=== PATIENT | male | born 1970 | race Caucasian/White ===

== ENCOUNTER 2021-12-01 11:00 | Emergency (ER) | payer MEDICAID, SELFPAY ==
[2021-12-01 11:28] VITALS: BP 91/66; PULSE 106; RESP 16; TEMP 36.4; O2SAT 98; BMI 18.8
--- NOTE | 2021-12-01 12:00 | CRLHL7_ITS ---
For Patients: As a result of the Century Cures Act, medical imaging exams and procedure reports are released immediately into your electronic medical record. You may view this report before your referring provider. If you have questions, please contact your health care provider. Indication: ABD PAIN, WIEGHT LOSS Technique: Noncontrast CT abdomen and pelvis Please note that all CT scans at this facility use dose modulation, iterative reconstruction, and/or weight-based dosing when appropriate to reduce radiation dose to as low as reasonably achievable. Comparison: None Findings: Lung bases are clear. No free intraperitoneal air. Lung volume is in the lung bases are hyperinflated. Noncontrast enhanced liver normal. Gallbladder is incompletely distended. No calcified gallstones or biliary obstruction. Normal noncontrast enhanced pancreas and spleen. Adrenal glands are unremarkable. No renal stone or hydronephrosis. Mild vascular calcifications are present. The bladder is distended. No bladder stones. Normal ureters. Prostate calcifications are present. Stool is present throughout the colon. Appendix is normal. No free fluid or abscess. Fecalization of small bowel loops noted. Chronic bilateral pars defects at L5 without spondylolisthesis. No mechanical bowel obstruction. No adenopathy. Impression: Stool is present throughout the colon with fecalization of numerous small bowel loops suggesting constipation/small bowel motility disorder. Please note that all CT scans at this facility use dose modulation, iterative reconstruction, and/or weight-based dosing when appropriate to reduce radiation dose to as low as reasonably achievable. Dictated by Yehuda Kerr MD @ 12/01/2021 12:48:18 PM (Electronically Signed)
--- NOTE | 2021-12-01 12:01 | CRLHL7_ITS ---
For Patients: As a result of the Century Cures Act, medical imaging exams and procedure reports are released immediately into your electronic medical record. You may view this report before your referring provider. If you have questions, please contact your health care provider. INDICATION: Shortness of breath. TECHNIQUE: Chest 2 views. COMPARISON: None. FINDINGS: Cardiovascular and mediastinum: Heart size and vasculature are normal in caliber and appearance. Lungs and pleural spaces: Lungs are hyperinflated but otherwise clear. No sign of infiltrate or mass. No sign of pleural effusion. No pneumothorax. Bones and soft tissues: No significant findings. IMPRESSION: Lung hyperinflation suggesting obstructive disease such as asthma or COPD. Exam otherwise unremarkable. Dictated by Shahid Boykin MD @ 12/01/2021 12:43:39 PM (Electronically Signed)
--- NOTE | 2021-12-01 12:32 | ED.GENADULT ---
HPI - General Adult General Chief complaint: Abdominal Pain Stated complaint: Abdominal pain Time Seen by Provider: 12/01/21 11:49 History of Present Illness HPI narrative: 51-year-old male, looks older than stated age, coming in today complaining of abdominal pain that has been present for 2 months. Pain is located across the epigastric region and sometimes radiates diffusely. He states that eating makes it worse. Zantac makes it better. He is concerned because despite having a normal appetite he has lost about 40 lb in the last 10 months. He states that he has been eating smaller amounts of food more frequently throughout the day but feels he has been eating the same amount the end of the day. He denies any diarrhea. No dysuria, increased urgency or frequency although he states that he usually has urgency and frequency because he does have diabetes. Patient read about a year ago that metformin causes cancer so he stopped taking his metformin. He is currently taking no medications. He does smoke a pack cigarettes per day, smokes marijuana daily. Denies other drug or alcohol use. He does live with his mother, who encouraged him to be seen today. He denies any vomiting, no significant nausea. No blood in his stools. Related Data Home Medications Medication Instructions Recorded Confirmed famotidine 10 mg tablet 10 mg PO DAILY 12/01/21 12/01/21 (Zantac-360 (famotidine)) Previous Rx's Medication Instructions Recorded sucralfate 1 gram tablet (Carafate) 1 g PO BID #60 tabs 12/01/21 sucralfate 1 gram tablet (Carafate) 1 g PO TID PRN #30 tabs 12/01/21 Allergies Allergy/AdvReac Type Severity Reaction Status Date / Time aspirin Allergy Mild Verified 12/01/21 11:36 Review of Systems Status of ROS: Reports: 10 or more systems reviewed and unremarkable except as noted in History and below [facility] Social History Smoking Status: Never smoker Do you use any of these nicotine containing products: None Second hand tobacco smoke exposure: No How often do you have a drink containing alcohol: never How often do you have six or more drinks on one occasion: Never AUDIT-C Alcohol total score: 0 Non-prescribed substance use: denies use service: No Exam Narrative: Exam Narrative: Very thin, well-developed patient in no acute distress. Alert and oriented. Answers questions appropriately. Mood and affect are appropriate. Thoughts are goal oriented and rational. No tangential or magical thinking noted. Patient speaks in full sentences without needing to catch his breath. Speech is not slurred or pressured. HEENT: Normocephalic atraumatic. Pupils are equally round reactive to light. Extraocular muscles are intact. Conjunctivae are moist without any icterus noted. Moist mucous membranes. Multiple missing teeth. Posterior pharynx is normal. Neck is soft without any lymphadenopathy or thyromegaly. No masses are appreciated. Cardiovascular: Heart is regular rate and rhythm S1 and S2 are present without any murmurs. Lungs: Decreased breath sounds bilaterally, no wheezes rhonchi or rales are appreciated. Patient takes deep breaths without any discomfort. Abdomen: Soft and nondistended with normal bowel sounds. No guarding or rebound. No masses or organomegaly appreciated. He has mild tenderness in the epigastric region. He has some redundant skin on the abdominal wall. Extremities: Bilateral lower extremities are without edema. Normal DP and PT pulses. Skin: Well perfused without any obvious rashes. Const: Vital Signs, click to edit/add: Vital Signs - 24 hr 12/01/21 11:28 Temperature 97.6 F Pulse Rate [Right Pulse Oximeter] 106 H Respiratory Rate 16 Blood Pressure [Le ft Upper Arm] 91/66 Pulse Oximetry 98 Oxygen Delivery Me thod Room Air Course Course Hospital Course: Labs were unremarkable. Chest x-ray consistent with COPD. Abdominal CT unremarkable. Vital Signs Vital signs: Initial Vital Signs Temperature 97.6 F 12/01/21 11:28 Temperature Source Temporal Artery Scan 12/01/21 11:28 Pulse Rate 106 H 12/01/21 11:28 Pulse Rhythm 12/01/21 11:28 Respiratory Rate 16 12/01/21 11:28 Blood Pressure 91/66 12/01/21 11:28 Blood Pressure Mean 74 12/01/21 11:28 Blood Pressure Position Sitting 12/01/21 11:28 Pulse Oximetry 98 12/01/21 11:28 Oxygen Delivery Method 12/01/21 11:28 Vital Signs Temperature 97.6 F 12/01/21 11:28 Pulse Rate 106 H 12/01/21 11:28 Respiratory Rate 16 12/01/21 11:28 Blood Pressure 91/66 12/01/21 11:28 Pulse Oximetry 98 12/01/21 11:28 Oxygen Delivery Method 12/01/21 11:28 Temperature 97.6 F 12/01/21 11:28 Pulse Rate 106 H 12/01/21 11:28 Respiratory Rate 16 12/01/21 11:28 Blood Pressure 91/66 12/01/21 11:28 Pulse Oximetry 98 12/01/21 11:28 Oxygen Delivery Method 12/01/21 11:28 Medical Decision Making MDM Narrative Medical decision making narrative: 51-year-old male with abdominal discomfort consistent with gastritis or peptic ulcer disease. We discussed treatment for this including omeprazole, Carafate. I do recommend he follow up his primary care provider to see how he is doing. Also recommend he start back on his metformin. We discussed his elevated blood sugars today. I do not see any evidence of DKA. Medical Records Medical records reviewed: Yes I reviewed the patient's medical records Lab Data Lab results reviewed: Yes I reviewed the patient's lab results Labs: Lab Results 12/01/21 12/01/21 12/01/21 Range/Units 12:40 12:45 12:45 WBC 8.03 (4.50-11.00) K/uL RBC 4.76 (4.30-5.90) m/uL Hgb 14.7 (13.5-17.5) gm/dL Hct 42.2 (37.0-53.0) % MCV 89 (80-100) fL MCH 31 (26-34) pg MCHC 35 (32-36) gm/dL RDW Coeff of Gilles 11.3 L (11.5-15.5) % Plt Count 270 (140-440) K/uL Neut % (Auto) 61.0 (42.0-72.0) % Lymph % (Auto) 27.4 (20-44) % [place] % (Auto) 9.3 (0.0-11.0) % Eos % (Auto) 1.6 (0.0-7.0) % Baso % (Auto) 0.5 (0.0-3.0) % Neut # (Auto) 4.89 (1.7-7.0) K/uL Lymph # (Auto) 2.20 (0.90-2.90) K/uL [place] # (Auto) 0.70 (0.00-0.90) K/UL Eos # (Auto) 0.13 (0.00-0.50) K/uL Baso # (Auto) 0.04 (0.00-0.30) K/uL Abs Immat Gran (auto) 0.02 (0.00-0.30) K/uL ESR 2 (2-15) mm/hr VBG pH (7.32-7.43) VBG pCO2 (40-50) mmHG VBG pO2 (25-47) mmHG VBG HCO3 (21-28) mmol/L Sodium (135-149) mmol/L Potassium (3.6-5.1) mmol/L Chloride (96-114) mmol/L Carbon Dioxide (20-32) mmol/L BUN (5-24) mg/dL Creatinine (0.5-1.5) mg/dL Estimated Creat Clear Estimated GFR ml/min Glucose (60-115) mg/dL Lactate (0.5-1.9) mmol/L Calcium (8.4-10.6) mg/dL Total Bilirubin (0.1-1.5) mg/dL Direct Bilirubin (0.0-0.5) mg/dL AST (12-35) U/L ALT (4-50) U/L Alkaline Phosphatase (40-150) U/L C-Reactive Protein (0.5-1.0) mg/dL Total Protein (6.0-8.3) g/dL Albumin (3.3-5.0) g/dL Lipase (23-300) U/L TSH 0.963 (0.270-4.20) uIU/mL Urine Color (Yellow) Urine Appearance (Clear) Urine pH (5.0-8.5) Ur Specific [place] (1.000-1.030) Urine Protein (Negative) Urine Glucose (UA) (Negative) Urine Ketones (Negative) Urine Blood (Negative) Urine Nitrite (Negative) Urine Bilirubin (Negative) Urine Urobilinogen (0.2-1.0) Ur Leukocyte Esterase (Negative) Urine RBC (0-2) Urine WBC (0-5) Ur Squamous Epith Cells (None-Few) Urine Bacteria (None) 12/01/21 12/01/21 12/01/21 Range/Units 12:45 12:45 12:45 WBC (4.50-11.00) K/uL RBC (4.30-5.90) m/uL Hgb (13.5-17.5) gm/dL Hct (37.0-53.0) % MCV (80-100) fL MCH (26-34) pg MCHC (32-36) gm/dL RDW Coeff of Gilles (11.5-15.5) % Plt Count (140-440) K/uL Neut % (Auto) (42.0-72.0) % Lymph % (Auto) (20-44) % [place] % (Auto) (0.0-11.0) % Eos % (Auto) (0.0-7.0) % Baso % (Auto) (0.0-3.0) % Neut # (Auto) (1.7-7.0) K/uL Lymph # (Auto) (0.90-2.90) K/uL [place] # (Auto) (0.00-0.90) K/UL Eos # (Auto) (0.00-0.50) K/uL Baso # (Auto) (0.00-0.30) K/uL Abs Immat Gran (auto) (0.00-0.30) K/uL ESR (2-15) mm/hr VBG pH 7.403 (7.32-7.43) VBG pCO2 44 (40-50) mmHG VBG pO2 31.6 (25-47) mmHG VBG HCO3 27 (21-28) mmol/L Sodium 133 L (135-149) mmol/L Potassium 4.1 (3.6-5.1) mmol/L Chloride 100 (96-114) mmol/L Carbon Dioxide 26 (20-32) mmol/L BUN 12 (5-24) mg/dL Creatinine 0.4 L (0.5-1.5) mg/dL Estimated Creat Clear 171.99 Estimated GFR 134 ml/min Glucose 371 H* (60-115) mg/dL Lactate 1.2 (0.5-1.9) mmol/L Calcium 8.9 (8.4-10.6) mg/dL Total Bilirubin 0.6 (0.1-1.5) mg/dL Direct Bilirubin 0.1 (0.0-0.5) mg/dL AST 22 (12-35) U/L ALT 24 (4-50) U/L Alkaline Phosphatase 104 (40-150) U/L C-Reactive Protein < 0.5 L (0.5-1.0) mg/dL Total Protein 6.4 (6.0-8.3) g/dL Albumin 3.8 (3.3-5.0) g/dL Lipase 59 (23-300) U/L TSH (0.270-4.20) uIU/mL Urine Color (Yellow) Urine Appearance (Clear) Urine pH (5.0-8.5) Ur Specific [place] (1.000-1.030) Urine Protein (Negative) Urine Glucose (UA) (Negative) Urine Ketones (Negative) Urine Blood (Negative) Urine Nitrite (Negative) Urine Bilirubin (Negative) Urine Urobilinogen (0.2-1.0) Ur Leukocyte Esterase (Negative) Urine RBC (0-2) Urine WBC (0-5) Ur Squamous Epith Cells (None-Few) Urine Bacteria (None) 12/01/21 Range/Units 14:30 WBC (4.50-11.00) K/uL RBC (4.30-5.90) m/uL Hgb (13.5-17.5) gm/dL Hct (37.0-53.0) % MCV (80-100) fL MCH (26-34) pg MCHC (32-36) gm/dL RDW Coeff of Gilles (11.5-15.5) % Plt Count (140-440) K/uL Neut % (Auto) (42.0-72.0) % Lymph % (Auto) (20-44) % [place] % (Auto) (0.0-11.0) % Eos % (Auto) (0.0-7.0) % Baso % (Auto) (0.0-3.0) % Neut # (Auto) (1.7-7.0) K/uL Lymph # (Auto) (0.90-2.90) K/uL [place] # (Auto) (0.00-0.90) K/UL Eos # (Auto) (0.00-0.50) K/uL Baso # (Auto) (0.00-0.30) K/uL Abs Immat Gran (auto) (0.00-0.30) K/uL ESR (2-15) mm/hr VBG pH (7.32-7.43) VBG pCO2 (40-50) mmHG VBG pO2 (25-47) mmHG VBG HCO3 (21-28) mmol/L Sodium (135-149) mmol/L Potassium (3.6-5.1) mmol/L Chloride (96-114) mmol/L Carbon Dioxide (20-32) mmol/L BUN (5-24) mg/dL Creatinine (0.5-1.5) mg/dL Estimated Creat Clear Estimated GFR ml/min Glucose (60-115) mg/dL Lactate (0.5-1.9) mmol/L Calcium (8.4-10.6) mg/dL Total Bilirubin (0.1-1.5) mg/dL Direct Bilirubin (0.0-0.5) mg/dL AST (12-35) U/L ALT (4-50) U/L Alkaline Phosphatase (40-150) U/L C-Reactive Protein (0.5-1.0) mg/dL Total Protein (6.0-8.3) g/dL Albumin (3.3-5.0) g/dL Lipase (23-300) U/L TSH (0.270-4.20) uIU/mL Urine Color Yellow (Yellow) Urine Appearance Clear (Clear) Urine pH 5.5 (5.0-8.5) Ur Specific [place] 1.015 (1.000-1.030) Urine Protein Negative (Negative) Urine Glucose (UA) 2+ A (Negative) Urine Ketones 2+ A (Negative) Urine Blood Negative (Negative) Urine Nitrite Negative (Negative) Urine Bilirubin Negative (Negative) Urine Urobilinogen 0.2 (0.2-1.0) Ur Leukocyte Esterase Negative (Negative) Urine RBC 0-2 (0-2) Urine WBC 0-2 (0-5) Ur Squamous Epith Cells None (None-Few) Urine Bacteria None (None) Imaging Data CT scan - abdomen: Attestation: I have reviewed the pertinent imaging results. Radiologist's impression: Findings: Lung bases are clear. No free intraperitoneal air. Lung volume is in the lung bases are hyperinflated. Noncontrast enhanced liver normal. Gallbladder is incompletely distended. No calcified gallstones or biliary obstruction. Normal noncontrast enhanced pancreas and spleen. Adrenal glands are unremarkable. No renal stone or hydronephrosis. Mild vascular calcifications are present. The bladder is distended. No bladder stones. Normal ureters. Prostate calcifications are present. Stool is present throughout the colon. Appendix is normal. No free fluid or abscess. Fecalization of small bowel loops noted. Chronic bilateral pars defects at L5 without spondylolisthesis. No mechanical bowel obstruction. No adenopathy. Impression: Stool is present throughout the colon with fecalization of numerous small bowel loops suggesting constipation/small bowel motility disorder. Chest x-ray: Attestation: I have reviewed the pertinent imaging results. Radiologist's impression: FINDINGS: Cardiovascular and mediastinum: Heart size and vasculature are normal in caliber and appearance. Lungs and pleural spaces: Lungs are hyperinflated but otherwise clear. No sign of infiltrate or mass. No sign of pleural effusion. No pneumothorax. Bones and soft tissues: No significant findings. IMPRESSION: Lung hyperinflation suggesting obstructive disease such as asthma or COPD. Exam otherwise unremarkable. ECG Data Attestation: I personally reviewed and interpreted this ECG as follows: (Normal sinus rhythm, right axis deviation, pulmonary disease pattern, pulse 77.) Discharge Plan Discharge Clinical Impression: Diabetes, Gastritis Patient Disposition: Home, Self-Care Condition: Stable Additional Instructions: Start daily omeprazole 20 mg daily. Can purchase [id number]. Start Carafate as needed for abdominal discomfort. Follow-up with your primary care provider in 1-2 weeks to see how you are doing. Restart your metformin right away. Your exam is today show signs of COPD which is a lung disease usually caused by smoking. I do recommend that you consider smoking cessation-talk to your primary care provider about ways they can help you with this. Prescriptions: New sucralfate [Carafate] 1 gram tablet 1 g PO BID Qty: 60 2RF sucralfate [Carafate] 1 gram tablet 1 g PO TID PRNQty: 30 0RF No Action famotidine [Zantac-360 (famotidine)] 10 mg tablet 10 mg PO DAILY Follow Up/Referrals: Provider,Not a Local [Primary Care Provider] - Stand Alone Forms: [employer] Instructions
[2021-12-01 12:57] LABS: Lactate* 1.2 mmol/L (0.5-1.9)
[2021-12-01 13:01] LABS: Basophils Absolute Auto 0.04 K/uL (0.00-0.30); Basophils Percent Auto 0.5 % (0.0-3.0); Eosinophils Absolute Auto 0.13 K/uL (0.00-0.50); Eosinophils Percent Auto 1.6 % (0.0-7.0); Hematocrit 42.2 % (37.0-53.0); Hemoglobin* 14.7 gm/dL (13.5-17.5); Immature Granulocytes Abs Auto 0.02 K/uL (0.00-0.30); Lymphocytes Percent Auto 27.4 % (20-44); Mean Corpuscular HGB Conc 35 gm/dL (32-36); Mean Corpuscular Hemoglobin 31 pg (26-34); Mean Corpuscular Volume 89 fL (80-100); Monocytes Percent Auto 9.3 % (0.0-11.0); Neutrophils Absolute Auto 4.89 K/uL (1.7-7.0); Platelet Count* 270 K/uL (140-440); RDW Coefficient of Variation % 11.3 % (11.5-15.5); Red Blood Count 4.76 m/uL (4.30-5.90); White Blood Count* 8.03 K/uL (4.50-11.00)
[2021-12-01 13:12] LABS: Slide Review Reflex No
[2021-12-01 13:19] LABS: Albumin* 3.8 g/dL (3.3-5.0); Chloride* 100 mmol/L (96-114)
[2021-12-01 13:20] LABS: Potassium* 4.1 mmol/L (3.6-5.1); Sodium* 133 mmol/L (135-149)
[2021-12-01 13:21] LABS: Creatinine* 0.4 mg/dL (0.5-1.5); Est. Creatinine Clearance* 171.99; Estimated Glomerular Filt Rate 134 ml/min
[2021-12-01 13:22] LABS: Alkaline Phosphatase* 104 U/L (40-150); Aspartate Amino Transferase* 22 U/L (12-35); Bilirubin Direct* 0.1 mg/dL (0.0-0.5); Bilirubin Total* 0.6 mg/dL (0.1-1.5); Blood Urea Nitrogen* 12 mg/dL (5-24); Carbon Dioxide* 26 mmol/L (20-32); Lipase* 59 U/L (23-300); Total Protein* 6.4 g/dL (6.0-8.3)
[2021-12-01 13:23] LABS: Alanine Aminotransferase* 24 U/L (4-50); Calcium* 8.9 mg/dL (8.4-10.6)
[2021-12-01 13:28] LABS: C Reactive Protein* < 0.5 mg/dL (0.5-1.0); Glucose* 371 mg/dL (60-115)
[2021-12-01 13:38] LABS: Erythrocyte SedimentationRate* 2 mm/hr (2-15)
[2021-12-01] MEDS: 0.9 % SODIUM CHLORIDE 1000 ml 1,000 ML IV (13:48)
[2021-12-01 13:52] LABS: HCO3 VBG 27 mmol/L (21-28); PCO2 VBG 44 mmHG (40-50); PO2 VBG 31.6 mmHG (25-47); pH VBG 7.403 (7.32-7.43)
[2021-12-01 13:52] LABS: Thyroid Stimulating Hormone* 0.963 uIU/mL (0.270-4.20)
[2021-12-01 14:52] LABS: Appearance Urine Clear (Clear); Bilirubin Urine Negative (Negative); Blood Urine Negative (Negative); Color Urine Yellow (Yellow); Glucose Urine 2+ (Negative); Ketones Urine 2+ (Negative); Leukocyte Esterase Urine Negative (Negative); Nitrite Urine Negative (Negative); Protein Urine Negative (Negative); Specific Gravity Urine 1.015 (1.000-1.030); Urobilinogen Urine 0.2 (0.2-1.0); pH Urine 5.5 (5.0-8.5)
[2021-12-01 15:04] LABS: RBC Urine 0-2 (0-2); WBC Urine 0-2 (0-5)
[2021-12-01 15:36] VITALS: BP 123/76; PULSE 76; RESP 16; O2SAT 99
== END 2021-12-01 15:40 | disposition home or self-care (01) ==
PROVIDERS: Emergency Provider Family Medicine
DX: K29.70 Gastritis, unspecified, without bleeding (principal); E11.9 Type 2 diabetes mellitus without complications
CPT/HCPCS: 36415; 71046; 74176; 80048; 80076; 81001; 82803; 83605; 83690; 84443; 85025; 85651; 86140; 87086; 93005; 96360; 99284; 99285; J7030

== ENCOUNTER 2022-02-06 13:06 | Outpatient (CLI) | payer MEDICAID, SELFPAY ==
[2022-02-06 16:04] LABS: Chloride* 99 mmol/L (96-114); Potassium* 4.2 mmol/L (3.6-5.1); Sodium* 133 mmol/L (135-149)
[2022-02-06 16:07] LABS: Carbon Dioxide* 27 mmol/L (20-32); Creatinine* 0.6 mg/dL (0.5-1.5); Estimated Glomerular Filt Rate 118 ml/min
[2022-02-06 16:08] LABS: Blood Urea Nitrogen* 18 mg/dL (7-30); Calcium* 9.7 mg/dL (8.4-10.6); Glucose* 259 mg/dL (60-115)
== END 2022-02-06 13:07 | disposition home or self-care (01) ==
LOC: FBOREF 13:06
PROVIDERS: Visit Provider Family Medicine
DX: E11.9 Type 2 diabetes mellitus without complications (principal)
CPT/HCPCS: 80048

== ENCOUNTER 2022-04-27 08:47 | Emergency (ER) | payer MEDICAID, SELFPAY ==
[2022-04-27] VITALS (18 sets, daily range): BP systolic 102–134; BP diastolic 82–106; PULSE 65–87; RESP 20; TEMP 36.6; O2SAT 95–99; BMI 15.7
--- NOTE | 2022-04-27 09:21 | CRLHL7_ITS ---
For Patients: As a result of the Century Cures Act, medical imaging exams and procedure reports are released immediately into your electronic medical record. You may view this report before your referring provider. If you have questions, please contact your health care provider. INDICATION: anterolateral rib pain TECHNIQUE: Chest and left ribs 3 views. COMPARISON: None FINDINGS: Cardiovascular and mediastinum: Heart size and vasculature are normal in caliber and appearance. Mediastinum is within normal limits. Lungs and pleural spaces: The lungs are hyperinflated. No focal consolidation. No sign of pleural effusion. No pneumothorax. Bones and soft tissues: Detailed oblique images of the left ribs demonstrate no fractures or bone lesions. IMPRESSION: Hyperinflated lungs which can be seen with COPD which is nonspecific. No displaced left rib fractures evident. Dictated by Gio Lyons MD @ 04/27/2022 11:07:51 AM (Electronically Signed)
--- NOTE | 2022-04-27 09:24 | ED_ITS ---
HPI - General Adult General Chief complaint: Chest Pain Stated complaint: Chest pain Time Seen by Provider: 04/27/22 08:57 Source: patient Mode of arrival: ambulatory Limitations: no limitations History of Present Illness HPI narrative: Patient is a 52-year-old male today coming in complaining of chest pain that started 2 days ago. Patient states that 2 days ago he was carrying some groceries and had to cross a snowy path when he lost his footing and fell to his knees. He believes his chest pain started then. He states that it is constant and movement makes it worse. Sitting still makes it better. It does not cause shortness of breath or cough. He feels that at night when he sleeps on his chest. This morning it hurts so bad that he had to roll himself out of bed. Patient has been dealing with some gastritis and weight loss. His weight loss continues to worsen and he states that he is up to a 60 lb weight loss. The patient states that an EGD was recommended, however he does not want to do that because he is scared of the procedure. He does state that he has been taking all of his diabetic medications as prescribed by his primary care provider in that his A1c has been improving. Related Data Home Medications Medication Instructions Recorded Confirmed blood-glucose meter (Accu-Chek 12/07/21 02/06/22 Katya Plus Meter) lancets (Accu-Chek Softclix 12/07/21 02/06/22 Lancets) Previous Rx's Medication Instructions Recorded flash glucose scanning reader #1 ea 12/11/21 (FreeStyle Delmi 2 Monitor) flash glucose sensor (FreeStyle #6 ea 12/11/21 Delmi 2 Sensor kit) glimepiride 4 mg tablet 4 mg PO BID #60 tabs 02/06/22 metformin 500 mg tablet,extended 1,000 mg PO BID #120 tabs 02/06/22 release 24hr omeprazole 40 mg capsule,delayed 40 mg PO QDAY #30 caps 02/06/22 release Allergies Allergy/AdvReac Type Severity Reaction Status Date / Time aspirin Allergy Mild Verified 02/06/22 12:30 Penicillin Allergy Unknown Uncoded 02/06/22 12:30 Review of Systems Status of ROS: Reports: 10 or more systems reviewed and unremarkable except as noted in History and below [facility] Medical History Gastritis GERD (gastroesophageal reflux disease) Type 2 diabetes mellitus Surgical History No significant past surgical history Family History Paternal Grandfather Coronary artery disease Father Coronary artery disease Family/Other Bipolar disorder Social History Narrative: Single, no kids, one pack per day smoker, marijuana use, occasional alcohol. Works in [employer]. Smoking Status: Current every day smoker What tobacco products do you use: cigarettes Smoking packs per day: 1.5 Smoking cigarettes per day: 30.0 Do you use any of these nicotine containing products: Vaping Products Second hand tobacco smoke exposure: No How often do you have a drink containing alcohol: never How often do you have six or more drinks on one occasion: Never AUDIT-C Alcohol total score: 0 Non-prescribed substance use: marijuana (any form) service: No Exam Narrative: Exam Narrative: Very thin patient in no acute distress. Alert and oriented. Answers questions appropriately. Mood and affect are appropriate. Thoughts are goal oriented and rational. No tangential or magical thinking noted. Patient speaks in full sentences without needing to catch his breath. HEENT: Normocephalic atraumatic. Pupils are equally round reactive to light. Extraocular muscles are intact. Conjunctivae are moist without any icterus noted. Moist mucous membranes. Very poor dentition. Neck is soft. Cardiovascular: Heart is regular rate and rhythm S1 and S2 are present without any murmurs. Lungs: Clear to auscultation bilaterally no wheezes rhonchi or rales are appreciated. Patient takes deep breaths without any discomfort. I can reproduce the patient's pain with palpation of the anterolateral left chest wall. I can place 1 finger very gently just lateral to his nipple and patient yells at me to ?please stop doing that? secondary to pain. Abdomen: Soft and nontender nondistended with normal bowel sounds. Extremities: Bilateral lower extremities are without edema. Skin: Well perfused without any obvious rashes. Const: Vital Signs, click to edit/add: Vital Signs - 24 hr 04/27/22 09:01 04/27/22 09:21 04/27/22 09:24 Temperature 97.8 F Pulse Rate 78 Pulse Rate [Pulse Oximeter] 72 Respiratory Rate 20 Blood Pressure Blood Pressure [Le ft Upper Arm] 109/93 H Pulse Oximetry 99 99 98 Oxygen Delivery Me thod Room Air 04/27/22 09:30 04/27/22 09:32 04/27/22 10:00 Temperature Pulse Rate 87 81 65 Pulse Rate [Pulse Oximeter] Respiratory Rate Blood Pressure 102/82 Blood Pressure [Le ft Upper Arm] Pulse Oximetry 98 98 98 Oxygen Delivery Me thod 04/27/22 10:03 Temperature Pulse Rate 78 Pulse Rate [Pulse Oximeter] Respiratory Rate Blood Pressure 118/90 H Blood Pressure [Le ft Upper Arm] Pulse Oximetry 98 Oxygen Delivery Me thod Course Course Hospital Course: IV was established and labs were drawn. EKG, read by me, shows normal sinus rhythm with a right axis deviation, unchanged from previous EKGs. His lab work was unremarkable. Troponin within normal limits. Glucose level to 217. Chest x-ray unremarkable. Vital Signs Vital signs: Initial Vital Signs Temperature 97.8 F 04/27/22 09:01 Temperature Source Temporal Artery Scan 04/27/22 09:01 Pulse Rate 72 04/27/22 09:01 Pulse Rhythm 04/27/22 09:01 Respiratory Rate 20 04/27/22 09:01 Blood Pressure 109/93 H 04/27/22 09:01 Blood Pressure Mean 98 04/27/22 09:01 Blood Pressure Position Semi-Fowlers 04/27/22 09:01 Pulse Oximetry 99 04/27/22 09:01 Oxygen Delivery Method 04/27/22 09:01 Vital Signs Temperature 97.8 F 04/27/22 09:01 Pulse Rate 72 04/27/22 09:01 Respiratory Rate 20 04/27/22 09:01 Blood Pressure 109/93 H 04/27/22 09:01 Pulse Oximetry 99 04/27/22 09:01 Oxygen Delivery Method 04/27/22 09:01 Temperature 97.8 F 04/27/22 09:01 Pulse Rate 78 04/27/22 10:03 Respiratory Rate 20 04/27/22 09:01 Blood Pressure 118/90 H 04/27/22 10:03 Pulse Oximetry 98 04/27/22 10:03 Oxygen Delivery Method 04/27/22 09:01 Medical Decision Making MDM Narrative Medical decision making narrative: 52-year-old male with chest wall pain. We discussed symptomatic treatment and reasons for follow-up. I do recommend he get an EGD for his chronic abdominal discomfort and weight loss. Patient has a follow-up appointment this Saturday with his primary care provider already scheduled. Medical Records Medical records reviewed: Yes I reviewed the patient's medical records Lab Data Lab results reviewed: Yes I reviewed the patient's lab results Labs: Lab Results 04/27/22 04/27/22 Range/Units 09:30 09:30 WBC 7.17 (4.50-11.00) K/uL RBC 4.81 (4.30-5.90) m/uL Hgb 14.6 (13.5-17.5) gm/dL Hct 42.6 (37.0-53.0) % MCV 89 (80-100) fL MCH 30 (26-34) pg MCHC 34 (32-36) gm/dL RDW Coeff of Gilles 11.3 L (11.5-15.5) % Plt Count 287 (140-440) K/uL Neut % (Auto) 67.3 (42.0-72.0) % Lymph % (Auto) 21.8 (20-44) % [place] % (Auto) 9.1 (0.0-11.0) % Eos % (Auto) 1.4 (0.0-7.0) % Baso % (Auto) 0.3 (0.0-3.0) % Neut # (Auto) 4.83 (1.7-7.0) K/uL Lymph # (Auto) 1.56 (0.90-2.90) K/uL [place] # (Auto) 0.70 (0.00-0.90) K/UL Eos # (Auto) 0.10 (0.00-0.50) K/uL Baso # (Auto) 0.02 (0.00-0.30) K/uL Sodium 136 (135-149) mmol/L Potassium 4.3 (3.6-5.1) mmol/L Chloride 101 (96-114) mmol/L Carbon Dioxide 31 (20-32) mmol/L BUN 12 (7-30) mg/dL Creatinine 0.6 (0.5-1.5) mg/dL Estimated Creat Clear 94.50 Estimated GFR 118 ml/min Glucose 217 H (60-115) mg/dL Calcium 8.7 (8.4-10.6) mg/dL Troponin I < 0.01 L (0.01-0.04) ng/mL Imaging Data Chest x-ray: Attestation: I have reviewed the pertinent imaging results. Radiologist's impression: Chest and left ribs 3 views. COMPARISON: None FINDINGS: Cardiovascular and mediastinum:? Heart size and vasculature are normal in caliber and appearance.? Mediastinum is within normal limits.? Lungs and pleural spaces: The lungs are hyperinflated. No focal consolidation. No sign of pleural effusion.? No pneumothorax.? Bones and soft tissues:? Detailed oblique images of the left ribs demonstrate no fractures or bone lesions.? ? IMPRESSION: Hyperinflated lungs which can be seen with COPD which is nonspecific. No displaced left rib fractures evident. Discharge Plan Discharge Clinical Impression: Acute chest wall pain Patient Disposition: Home, Self-Care Condition: Stable Additional Instructions: Follow-up with your primary care provider as scheduled. Okay to use heat to the chest wall as needed. Do not apply heat directly to skin. Prescriptions: No Action metformin 500 mg tablet extended release 24hr 1,000 mg PO BID Qty: 120 2RF glimepiride 4 mg tablet 4 mg PO BID Qty: 60 2RF Rx Instructions: administer with breakfast omeprazole 40 mg capsule,delayed release(DR/EC) 40 mg PO QDAY Qty: 30 2RF (DME) blood-glucose meter [Accu-Chek Katya Plus Meter] Misc See Rx Instructions .Route Rx Instructions: Use to check blood glucose two times daily (DME) lancets [Accu-Chek Softclix Lancets] Misc See Rx Instructions .Route Rx Instructions: Use to check blood glucose two times daily (DME) FreeStyle Delmi 2 Monitor Misc See Rx Instructions .Route Qty: 1 0RF Rx Instructions: As directed (DME) FreeStyle Delmi 2 Sensor Kit See Rx Instructions .Route Qty: 6 1RF Rx Instructions: Every 2 weeks Follow Up/Referrals: Provider,Not a Local [Referring] - Stand [facility]one [facility]: [facility]
[2022-04-27 09:39] LABS: Basophils Absolute Auto 0.02 K/uL (0.00-0.30); Basophils Percent Auto 0.3 % (0.0-3.0); Eosinophils Percent Auto 1.4 % (0.0-7.0); Hematocrit 42.6 % (37.0-53.0); Hemoglobin* 14.6 gm/dL (13.5-17.5); Immature Granulocytes Abs Auto 0.01 K/uL (0.00-0.30); Immature Granulocytes Pct Auto 0.1 %; Lymphocytes Absolute Auto 1.56 K/uL (0.90-2.90); Lymphocytes Percent Auto 21.8 % (20-44); Mean Corpuscular HGB Conc 34 gm/dL (32-36); Mean Corpuscular Hemoglobin 30 pg (26-34); Mean Corpuscular Volume 89 fL (80-100); Monocytes Percent Auto 9.1 % (0.0-11.0); Neutrophils Absolute Auto 4.83 K/uL (1.7-7.0); Neutrophils Percent Auto 67.3 % (42.0-72.0); Platelet Count* 287 K/uL (140-440); RDW Coefficient of Variation % 11.3 % (11.5-15.5); Red Blood Count 4.81 m/uL (4.30-5.90); White Blood Count* 7.17 K/uL (4.50-11.00)
[2022-04-27 09:41] LABS: Slide Review Reflex No
--- NOTE | 2022-04-27 09:55 | ED.NURSE ---
Pt to and back from radiology
[2022-04-27 10:05] LABS: Chloride* 101 mmol/L (96-114); Potassium* 4.3 mmol/L (3.6-5.1); Sodium* 136 mmol/L (135-149)
[2022-04-27 10:07] LABS: Creatinine* 0.6 mg/dL (0.5-1.5); Estimated Glomerular Filt Rate 118 ml/min
[2022-04-27 10:08] LABS: Blood Urea Nitrogen* 12 mg/dL (7-30); Carbon Dioxide* 31 mmol/L (20-32); Glucose* 217 mg/dL (60-115)
[2022-04-27 10:09] LABS: Calcium* 8.7 mg/dL (8.4-10.6)
[2022-04-27 10:21] LABS: Troponin I* < 0.01 ng/mL (0.01-0.04)
== END 2022-04-27 12:06 | disposition home or self-care (01) ==
PROVIDERS: Emergency Provider Family Medicine; PCP Family Medicine
DX: R07.89 Other chest pain (principal)
CPT/HCPCS: 36415; 71101; 80048; 84484; 85025; 93005; 94761; 99284; 99285

== ENCOUNTER 2022-06-15 10:59 | Outpatient (CLI) | payer MEDICAID, SELFPAY ==
--- NOTE | 2022-06-15 11:00 | CRLHL7_ITS ---
For Patients: As a result of the Century Cures Act, medical imaging exams and procedure reports are released immediately into your electronic medical record. You may view this report before your referring provider. If you have questions, please contact your health care provider. Indication: Severe malnutrition Technique: Contrast CT chest abdomen and pelvis Comparison: CT abdomen pelvis 12/01/2021 Findings: Normal caliber thoracic aorta normal heart size. No mediastinal or hilar adenopathy no pericardial effusion. Lungs appear clear. The liver kidneys pancreas gallbladder unremarkable. No abdominal aortic aneurysm urinary bladder is unremarkable. The bowel is unremarkable Normal appendix. 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 No suspicious bony lesions are seen. Impression: No acute findings in the chest abdomen or pelvis. Please note that all CT scans at this facility use dose modulation, iterative reconstruction, and/or weight-based dosing when appropriate to reduce radiation dose to as low as reasonably achievable. Dictated by Anh Olivarez MD @ 06/15/2022 1:40:55 PM (Electronically Signed)
[2022-06-15 11:35] LABS: Creatinine* 0.4 mg/dL (0.5-1.5); Estimated Glomerular Filt Rate 133 ml/min
== END 2022-06-15 11:00 | disposition home or self-care (01) ==
LOC: CT 11:01
PROVIDERS: PCP Family Medicine; Visit Provider Family Medicine
DX: E43 Unspecified severe protein-calorie malnutrition (principal)
CPT/HCPCS: 36415; 71260; 74177; 82565; Q9967

== ENCOUNTER 2025-03-15 17:14 | Emergency (ER) | payer OTHER, SELFPAY ==
--- OUTSIDE RECORDS SUMMARY | 2025-03-15 17:16 | XMS_ITS | Clinical Summary ---
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 [employer] Allergies Active Allergy Reactions Criticality Noted Date Comments Aspirin Unknown 12/05/2022 Penicillins Unknown 12/05/2022 Medications glimepiride (AMARYL) 4 MG tablet Take 1 Tablet (4 mg) by mouth two times a day. 11/05/2022 Active omeprazole (PRILOSEC) 40 MG capsule Take 1 Capsule (40 mg) by mouth two times a day. 08/20/2022 Active pioglitazone (ACTOS) 30 MG tablet Take 1 Tablet (30 mg) by mouth daily. 07/10/2022 Active Social History Tobacco Use Types Packs/Day Years Used Date Smoking Tobacco: Never Assessed Sex and Gender Information Value Date Recorded Sex Assigned at Not on file Legal Sex Male 6:54 AM CDT Gender Identity Not on file Sexual Orientation Not on file Last Filed Vital Signs Vital Sign Reading Time Taken Comments Blood Pressure - - Pulse - - Temperature 36.3 C (97.3 F) 12/05/2022 11:43 AM CDT Respiratory Rate - - Oxygen Saturation - - Inhaled Oxygen Concentration - - Weight 44 kg (97 lb) 12/05/2022 11:43 AM CDT Height 170.2 cm (5' 7) 12/05/2022 11:43 AM CDT Body Mass Index 15.19 12/05/2022 11:43 AM CDT Plan of Treatment Health Maintenance Due Date Last Done Comments Colon Cancer Screening Plan Due 1972 Hep C Screening (Preventive Services) 1972 PSA Screening Discussion 1972 HIV Screening (Preventive Services) 1988 Adult Preventive Visit 02/05/1990 HepB Vaccine (1) 02/05/1991 Cholesterol 02/05/2007 Pneumococcal Vaccine 50+ Yrs (1 of 1 - PCV) 02/05/2022 Zoster/Shingles Vaccine (1 of 2) 02/05/2022 DTaP/Tdap/Td Vaccine (2 - Tdap) 07/01/2024 5 COVID-19 Vaccine (1 - 2024-2 6 season) 2024 Influenza Vaccine (#1) 2024 03/21/2015 RSV Vaccine (1 - 1-dose 75+ series) 02/05/2047 HepA Vaccine Aged Out No longer eligi ble based on patient's age to complete this topic Hib Vaccine Aged Out No longer eligi ble based on patient's age to complete this topic IPV (Polio) Vaccine Aged Out No longe r eligible based on patient's age to complete this topic MCV4 Vaccine Aged Out No longer eligi ble based on patient's age to complete this topic Meningococcal B Vaccine Aged Out No l onger eligible based on patient's age to complete this topic Insurance [facility] Care Teams 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
[2025-03-15 17:24] VITALS: BP 91/62; PULSE 85; RESP 20; TEMP 37.1; O2SAT 97; BMI 16.3
--- NOTE | 2025-03-15 17:41 | CRLHL7_ITS ---
For Patients: As a result of the Century Cures Act, medical imaging exams and procedure reports are released immediately into your electronic medical record. You may view this report before your referring provider. If you have questions, please contact your health care provider. Indication: FALL AND RIGHT HIP PAIN Technique: Single view of the pelvis, two views of the right hip. Comparison: None. Findings: Osteopenia. Mild degenerative changes of the bilateral hips and of the visualized spine. No acute displaced fracture or malalignment is seen. Moderate stool burden is seen throughout the colon. Impression: Mild degenerative changes of the bilateral hips and of the visualized spine. No acute displaced fracture or malalignment is seen. Dictated by Blaine Guerrero MD @ 03/15/2025 7:18:53 PM (Electronically Signed)
--- NOTE | 2025-03-15 17:41 | ED.GENADULT ---
HPI - General Adult General Chief complaint: Fall/Minor Trauma Stated complaint: fell this morning/ can't walk Time Seen by Provider: 03/15/25 17:36 Source: patient Mode of arrival: wheelchair Limitations: no limitations History of Present Illness HPI narrative: 55-year-old male presenting today with right-sided leg pain. Patient states that he can not pinpoint where the pain is. He states that he tripped fell onto his right side when his dog pulled him down. He has not been able to walk since. He denies hitting his head or consciousness. He denies any neck pain. No pain across the chest wall. He is not short of breath. Patient states that he has been chronically ill for the last 4 years and has spent the last 3 years in bed. He states that he has uncontrolled diabetes and gastric ulcers. He has lost a significant amount of weight in the last 4 years getting down to as low as 88 lb. He states that he has no other known diagnoses. Lives at home with his , smokes a pack to 1 and half pack cigarettes per day. No difficulty with urination. No blood in his urine. He denies new nausea or vomiting. Related Data Home Medications ?Medication ?Instructions ?Recorded ?Confirmed blood-glucose meter (Accu-Chek 12/07/21 04/30/22 Katya Plus Meter) lancets (Accu-Chek Softclix 12/07/21 04/30/22 Lancets) equate tylenol PO 04/30/22 medical marijuana inhalation 04/30/22 vitamin E (dl, acetate) PO 04/30/22 04/30/22 Previous Rx's ?Medication ?Instructions ?Recorded flash glucose scanning reader #1 ea 12/11/21 (FreeStyle Delmi 2 [place]) flash glucose sensor (FreeStyle #6 ea 12/11/21 Delmi 2 Sensor kit) metformin 500 mg tablet,extended 1,000 mg (2 x 500 mg) PO BID #120 04/30/22 release 24hr (osmotic) tabs omeprazole 40 mg capsule,delayed 40 mg PO BID #60 caps 04/30/22 release glimepiride 4 mg tablet 4 mg PO BID #60 tabs 02/01/23 Allergies Allergy/AdvReac Type Severity Reaction Status Date / Time aspirin Allergy Mild Verified 03/15/25 17:29 Penicillin Allergy Unknown Uncoded 04/30/22 08:19 Review of Systems Status of ROS: Reports: 6 or more systems reviewed and unremarkable except as noted in History and below [facility] Medical History GERD (gastroesophageal reflux disease) ?K21.9 - Gastro-esophageal reflux disease without esophagitis (ICD-10) Type 2 diabetes mellitus ?E11.9 - Type 2 diabetes mellitus without complications (ICD-10) Gastritis ?K29.70 - Gastritis, unspecified, without bleeding (ICD-10) Surgical History No significant past surgical history Family History Paternal Grandfather Coronary artery disease Father Coronary artery disease Family/Other Bipolar disorder Social History Narrative: Single, no kids, one pack per day smoker, marijuana use, occasional alcohol. Works in [employer]. Smoking Status: Current every day smoker What tobacco products do you use: cigarettes Smoking packs per day: 1.5 Smoking cigarettes per day: 30.0 Do you use any of these nicotine containing products: Vaping Products Second hand tobacco smoke exposure: No How often do you have a drink containing alcohol: never How often do you have six or more drinks on one occasion: Never AUDIT-C Alcohol total score: 0 Non-prescribed substance use: marijuana (any form) service: No Exam Narrative: Exam Narrative: Cachectic appearing patient, uncomfortable and anxious. Alert and oriented. Answers questions appropriately. Patient speaks in full sentences without needing to catch their breath. Smells strongly of tobacco. HEENT: Normocephalic atraumatic. Pupils are equally round reactive to light. Extraocular muscles are intact. Conjunctivae are moist without any icterus noted. Moist mucous membranes. Posterior pharynx is normal. Poor dentition. Cardiovascular: Heart is regular rate and rhythm. Lungs: Clear to auscultation bilaterally. Extremities: Bilateral lower extremities are without edema. Normal DP and PT pulses. Ankle any of the right have normal appearance. There is no swelling, obvious joint effusion, skin changes. Patient has tenderness to palpation of the proximal femur. He cannot extend at the hip, stays sitting and cannot lay down or stand up. Difficult to examine because of this. He also complains of pain with palpation at the knee diffusely. Normal color of the extremity including the foot. Skin: Well perfused. Const: Vital Signs, click to edit/add: Vital Signs - 24 hr 03/15/25 17:24 03/15/25 18:24 Temperature 98.8 F Pulse Rate [Pulse Oximeter] 85 Respiratory Rate 20 Blood Pressure [Ri ght Upper Arm] 91/62 Pulse Oximetry 97 90 Oxygen Delivery Me thod Room Air Course Course ED Course: IV fentanyl was ordered. Patient refused the IV requested oral pain medication. Oral hydrocodone was given. X-ray of the hip was ordered along with x-rays of the femur and knee. X-ray of the hip was unremarkable. X-ray of the femur any did not show any acute fractures. Patient was feeling better after oral pain medication. I discussed with him that I am concerned that there is an occult fracture present given the amount of pain that he was in earlier and his frailty. I discussed doing a CT scan of the pelvis and hip area. Patient states that he has done this before where he has fallen a is quite sore for several days and then gets better. He is requesting to be discharged at this time. He states that he will return if his pain is not getting better and certainly if it is getting worse. Vital Signs Vital signs: Initial Vital Signs Temperature 98.8 F 03/15/25 17:24 Temperature Source Temporal Artery Scan 03/15/25 17:24 Pulse Rate 85 03/15/25 17:24 Pulse Rhythm Regular 03/15/25 17:24 Respiratory Rate 20 03/15/25 17:24 Blood Pressure 91/62 03/15/25 17:24 Blood Pressure Mean 71 03/15/25 17:24 Blood Pressure Position Sitting 03/15/25 17:24 Pulse Oximetry 97 03/15/25 17:24 Oxygen Delivery Method Room Air 03/15/25 17:24 Vital Signs Temperature 98.8 F 03/15/25 17:24 Pulse Rate 85 03/15/25 17:24 Respiratory Rate 20 03/15/25 17:24 Blood Pressure 91/62 03/15/25 17:24 Pulse Oximetry 97 03/15/25 17:24 Oxygen Delivery Method Room Air 03/15/25 17:24 Temperature 98.8 F 03/15/25 17:24 Pulse Rate 85 03/15/25 17:24 Respiratory Rate 20 03/15/25 17:24 Blood Pressure 91/62 03/15/25 17:24 Pulse Oximetry 90 03/15/25 18:24 Oxygen Delivery Method Room Air 03/15/25 17:24 Medications Administered Medications: Discontinued Medications Generic Name Dose Route Start Last Admin Trade Name Kindra PRN Reason Stop Dose Admin Hydrocodone Bitart/Acetaminophen 1 tab 03/15/25 18:16 03/15/25 18:42 Hydrocodone-Acetamin 5-325 Mg 1 Tab PO 03/15/25 18:17 1 tab ONCE ONE Administration Medical Decision Making MDM Narrative Medical decision making narrative: 55-year-old male with leg and hip pain after a fall today. X-rays are unremarkable. Patient did not wish to proceed with a CT scan. Will be discharged home with hydrocodone. Return if he is not improving. Imaging Data X-ray hip: Attestation: I have reviewed the pertinent imaging results. Radiologist's impression: Technique: Single view of the pelvis, two views of the right hip. Comparison: None. Findings: Osteopenia. Mild degenerative changes of the bilateral hips and of the visualized spine. No acute displaced fracture or malalignment is seen. Moderate stool burden is seen throughout the colon. Impression: Mild degenerative changes of the bilateral hips and of the visualized spine. No acute displaced fracture or malalignment is seen. Femur/knee x-ray: Attestation: I have reviewed the pertinent imaging results. Radiologist's impression: TECHNIQUE: Two radiographic view(s) of the right femur. FINDINGS: Diffuse osseous demineralization. No evident acute displaced fracture. Mild osteophytosis of the hip and knee. IMPRESSION: No evident acute displaced fracture. Discharge Plan Discharge Clinical Impression: Acute leg pain Patient Disposition: Home, Self-Care Condition: Stable Additional Instructions: Take pain medications as needed/as prescribed. There is still concerned about a hip or pelvic fracture given the amount of pain that you were in. If your pain is not improving over the next 24-48 hours I do recommend you return to the emergency department for further imaging. 8 tablets of [place] sent to [facility]. Prescriptions: No Action (DME) blood-glucose meter [Accu-Chek Katya Plus Meter] Misc See Rx Instructions .Route Rx Instructions: Use to check blood glucose two times daily (DME) lancets [Accu-Chek Softclix Lancets] Misc See Rx Instructions .Route Rx Instructions: Use to check blood glucose two times daily (DME) FreeStyle Delmi 2 [place] Misc See Rx Instructions .Route Qty: 1 0RF Rx Instructions: As directed (DME) FreeStyle Delmi 2 Sensor Kit See Rx Instructions .Route Qty: 6 1RF Rx Instructions: Every 2 weeks vitamin E (dl, acetate) PO equate tylenol PO medical marijuana inhalation omeprazole 40 mg capsule,delayed release(DR/EC) 40 mg PO BID Qty: 60 2RF metformin 500 mg tablet extended release 24hr 1,000 mg PO BID Qty: 120 2RF glimepiride 4 mg tablet 4 mg PO BID Qty: 60 0RF Follow Up/Referrals: Yehuda Draper MD [Primary Care Provider, Family Practice] Stand Alone Forms: [facility] Info Instructions
[2025-03-15 18:24] VITALS: O2SAT 90
--- NOTE | 2025-03-15 18:37 | CRLHL7_ITS ---
For Patients: As a result of the Century Cures Act, medical imaging exams and procedure reports are released immediately into your electronic medical record. You may view this report before your referring provider. If you have questions, please contact your health care provider. INDICATION: Fall with pain COMPARISON: Same-day pelvic and right hip radiographs TECHNIQUE: Two radiographic view(s) of the right femur. FINDINGS: Diffuse osseous demineralization. No evident acute displaced fracture. Mild osteophytosis of the hip and knee. IMPRESSION: No evident acute displaced fracture. Dictated by Mason Ralph MD @ 03/15/2025 7:44:44 PM (Electronically Signed)
[2025-03-15] MEDS: HYDROCODONE-ACETAMIN 5-325 MG 1 TAB PO (18:42)
[2025-03-15 20:00] VITALS: BP 101/79; PULSE 81; RESP 20; TEMP 37.1; O2SAT 94
== END 2025-03-15 20:21 | disposition home or self-care (01) ==
PROVIDERS: Emergency Provider Family Medicine; PCP Family Medicine
DX: M79.604 Pain in right leg (principal); M25.551 Pain in right hip; W01.0XXA Fall on same level from slipping, tripping and stumbling without subsequent striking against object, initial encounter
CPT/HCPCS: 73502; 73552; 94761; 99284; A9270